=== PATIENT | female | born 1965 | race Caucasian/White ===

== ENCOUNTER 2023-12-09 13:56 | Outpatient (REF) | payer OTHER, SELFPAY ==
--- NOTE | ~2023-12-09 | CT_ITS ---
EXAMINATION: CT ABDOMEN AND PELVIS WITHOUT CONTRAST CLINICAL INFORMATION: Abdominal pain and left flank pain. COMPARISON: None available. TECHNIQUE: Multidetector volumetric imaging was performed from the superior aspect of the liver through the pubic symphysis. Sagittal and coronal reformatted images were obtained on the technologist's workstation. This CT examination was performed using dose optimization techniques as appropriate, variously including the following: *Automated exposure control *Adjustment of mA and/or kV according to patient size (this includes techniques or standardized protocols for targeted exams where dose is matched to indication/reason for exam; i.e. extremities or head) *Use of iterative reconstruction technique DLP: 582 mGy-cm FINDINGS: LUNG BASES: No pulmonary consolidation or pleural effusion. Bilateral breast implants are partially included in the [id number]. HEPATOBILIARY: Liver has normal size, shape, and attenuation. Gallbladder is surgically absent. No dilated bile ducts. PANCREAS: No edema, pancreatic ductal dilatation or mass. SPLEEN: Normal. ADRENAL GLANDS: Normal. KIDNEYS AND URETERS: Kidneys are normal in size. No perinephric edema, nephrolithiasis or hydronephrosis. 2.2 cm cortical cyst of the upper pole of the right kidney has a simple appearance. No renal imaging follow-up is recommended for simple cysts. The ureters are unremarkable. BLADDER: Normal. BOWEL AND PERITONEUM: No dilated bowel loops. No focal bowel wall thickening, free fluid or pneumoperitoneum. Status post appendectomy. Multiple diverticula of the descending and sigmoid colon without evidence of diverticulitis. Mild haziness of central mesenteric fat (i.e., lata mesentery) consistent with mild mesenteric panniculitis. ABDOMINAL WALL: Unremarkable. VASCULATURE: Unremarkable. LYMPH NODES: No pathologic sized lymph nodes in the abdomen or pelvis. No inguinal lymphadenopathy. PELVIC VISCERA: Uterus and adnexa are unremarkable. No pelvic free fluid. MUSCULOSKELETAL: No suspicious osseous lesions. Within the lumbar spine, facet arthropathy is worst on the left at L5-S1. CT/CT abdomen pelvis wo IV con IMPRESSION: * No evidence of urolithiasis or hydroureteronephrosis. * Multiple diverticula of the descending and sigmoid colon without evidence of diverticulitis. * Mild mesenteric panniculitis.
== END 2023-12-09 13:57 | disposition home or self-care (01) ==
LOC: HO.CT 13:56
PROVIDERS: PCP Family Medicine; Visit Provider Family Medicine
DX: E03.9 Hypothyroidism, unspecified (principal); R10.9 Unspecified abdominal pain
CPT/HCPCS: 74176